=== PATIENT | male | born 1970 | race Native Hawaiian/Other Pacific Islander ===

== ENCOUNTER 2018-01-21 10:15 | Emergency (ER) | payer OTHER ==
[~2018-01-21] VITALS: Ht 195.6 cm; Wt 127.0 kg
[2018-01-21] MEDS ORDERED: ZESTRIL40 MG PO (10:25)
== END 2018-01-21 11:35 | disposition home or self-care (01) ==
LOC: ED 10:15
DX: M54.16 Radiculopathy, lumbar region (principal); M54.5 Low back pain
CPT/HCPCS: 96372; 99283; J1100

== ENCOUNTER 2018-01-28 10:00 | Emergency (ER) | payer OTHER ==
[~2018-01-28] VITALS: Ht 195.6 cm; Wt 127.0 kg
[~2018-01-28 10:00] MED LIST: ZESTRIL40 MG PO
== END 2018-01-28 12:20 | disposition home or self-care (01) ==
LOC: ED 10:00
DX: M54.5 Low back pain (principal); G89.29 Other chronic pain; M54.31 Sciatica, right side
CPT/HCPCS: 96372; 99283; J1885; J2360; J2930

== ENCOUNTER 2019-02-16 10:49 | Emergency (ER) | payer OTHER ==
[~2019-02-16] VITALS: Ht 195.6 cm; Wt 136.1 kg
[2019-02-16 12:16] LABS: PLATELET COUNT 250 K/uL (142-355)
[2019-02-16 12:36] LABS: POTASSIUM 4.1 mmol/L (3.6-5.2)
[2019-02-16 13:25] VITALS: BP 131/82; TEMP 97.5
== END 2019-02-16 13:25 | disposition home or self-care (01) ==
LOC: ED 10:49
PROVIDERS: Emergency Medicine
DX: K64.8 Other hemorrhoids (principal)
CPT/HCPCS: 36415; 80053; 82272; 85027; 99283

== ENCOUNTER 2019-08-30 10:50 | Emergency (ER) | payer OTHER ==
[~2019-08-30] VITALS: Ht 195.6 cm; Wt 136.1 kg
[2019-08-30 10:54] VITALS: TEMP 98.1
[2019-08-30 12:40] VITALS: BP 152/99
== END 2019-08-30 12:40 | disposition home or self-care (01) ==
LOC: ED 10:50
DX: S39.012A Strain of muscle, fascia and tendon of lower back, initial encounter (principal); V40.3XXA Unspecified car occupant injured in collision with pedestrian or animal in nontraffic accident, initial encounter
CPT/HCPCS: 99283

== ENCOUNTER 2019-12-28 20:05 | Emergency (ER) | payer OTHER ==
[~2019-12-28] VITALS: Ht 195.6 cm; Wt 136.1 kg
[2019-12-28 21:08] VITALS: BP 110/72; TEMP 98.4
== END 2019-12-28 21:08 | disposition home or self-care (01) ==
LOC: ED 20:05
DX: M54.5 Low back pain (principal); G89.29 Other chronic pain; M54.16 Radiculopathy, lumbar region
CPT/HCPCS: 99281; J1885; J2930

== ENCOUNTER 2020-03-24 09:48 | Emergency (ER) | payer OTHER ==
[~2020-03-24] VITALS: Ht 195.6 cm; Wt 136.1 kg
[2020-03-24 09:57] VITALS: TEMP 98.2
[2020-03-24 11:23] VITALS: BP 150/89
== END 2020-03-24 11:23 | disposition home or self-care (01) ==
LOC: ED 09:48
DX: M54.42 Lumbago with sciatica, left side (principal); M54.41 Lumbago with sciatica, right side; G89.29 Other chronic pain
CPT/HCPCS: 96372; 99283; J1885; J2930

== ENCOUNTER 2020-06-10 11:44 | Emergency (ER) | payer OTHER ==
[~2020-06-10] VITALS: Ht 195.6 cm; Wt 136.1 kg
[2020-06-10 13:05] VITALS: BP 149/94; TEMP 98.5
== END 2020-06-10 13:05 | disposition home or self-care (01) ==
LOC: ED 11:44
DX: Z20.828 Contact with and (suspected) exposure to other viral communicable diseases (principal)
CPT/HCPCS: 87635; 87651; 99283; U0003

== ENCOUNTER 2020-12-02 10:35 | Emergency (ER) | payer OTHER ==
[~2020-12-02] VITALS: Ht 195.6 cm; Wt 142.0 kg
[2020-12-02 10:45] VITALS: BP 152/106; TEMP 97
== END 2020-12-02 11:26 | disposition home or self-care (01) ==
LOC: ED 10:35
DX: Z20.828 Contact with and (suspected) exposure to other viral communicable diseases (principal)
CPT/HCPCS: 87635; 99282; 99283; U0003

== ENCOUNTER 2021-02-11 11:42 | Emergency (ER) | payer OTHER ==
[~2021-02-11] VITALS: Ht 195.6 cm; Wt 136.1 kg
[2021-02-11 11:48] VITALS: BP 151/99; TEMP 97.6
[2021-02-11 12:46] LABS: PLATELET COUNT 332 K/uL (142-355)
[2021-02-11 12:53] LABS: POTASSIUM 3.8 mmol/L (3.6-5.2)
== END 2021-02-11 14:53 | disposition home or self-care (01) ==
LOC: ED 11:42
PROVIDERS: Family Medicine
DX: L97.529 Non-pressure chronic ulcer of other part of left foot with unspecified severity (principal); L03.032 Cellulitis of left toe
CPT/HCPCS: 80053; 84550; 85027; 99283

== ENCOUNTER 2021-02-17 10:34 | Emergency (ER) | payer OTHER ==
[~2021-02-17] VITALS: Ht 195.6 cm; Wt 139.3 kg
[2021-02-17 10:40] VITALS: BP 173/93; TEMP 98.2
[2021-02-17] MEDS ORDERED: CLINDAMYCIN PO (11:20)
== END 2021-02-17 13:47 | disposition home or self-care (01) ==
LOC: ED 10:34
DX: L97.529 Non-pressure chronic ulcer of other part of left foot with unspecified severity (principal)
CPT/HCPCS: 99283

== ENCOUNTER 2021-09-15 17:58 | Emergency (ER) | payer OTHER ==
[~2021-09-15] VITALS: Ht 195.6 cm; Wt 145.1 kg
[~2021-09-15 17:58] MED LIST changes: +CLINDAMYCIN PO
[2021-09-15 20:08] VITALS: BP 128/86; TEMP 98.4
== END 2021-09-15 20:00 | disposition home or self-care (01) ==
LOC: ED 17:58
DX: N48.89 Other specified disorders of penis (principal); L98.8 Other specified disorders of the skin and subcutaneous tissue; E66.8 Other obesity; Z86.16 Personal history of COVID-19
CPT/HCPCS: 99282; 99283